=== PATIENT | male | born 1935 | race Caucasian/White ===

== ENCOUNTER 2016-09-12 07:13 | Observation (INO) ==
--- NOTE | 2016-09-12 07:31 | Anesthesia Evaluation PreOp ---
Date of Encounter: 09/12/16 Time of Encounter: 07:29 - Past History Planned Operation: TURP Cardiac History: HTN Pulmonary History: Denies Any Significant HX CIRCULATION MANAGER History: Denies Any Significant HX Other Medical History: Renal (stones), GERD Anesthesia History: No Prior Anesthetic Complications, Past Anesthesia (tonsils , appy, lumbar) Alcohol Use: none Drug use: none Medications and Allergies Albuterol Sulfate [Proair HFA] 2 puff IH Q4HR 2 Days 11/18/14 [Rx] Doxycycline 100 mg PO BID 7 Days 11/18/14 [Rx] Flomax 11/18/14 [History] predniSONE [Prednisone] 20 mg PO BID 3 Days 11/18/14 [Rx] Albuterol Sulfate [Albuterol Inhaler] 2 puff IH Q6HR PRN #1 hfa.aer.ad 03/24/15 [Rx] Doxycycline 100 mg PO BID #20 capsule 03/24/15 [Rx] PredniSONE [Prednisone] 10 mg PO DAILY #30 tablet 03/24/15 [Rx] Allergies Penicillins [PCN] Allergy (Verified 11/18/14 16:51) See Comments - Meds/Allergy Pre-op Review Medications Reviewed: Yes Allergies Reviewed: Yes Beta Blockers on Current Med List: No Anesthesia Results - Labs Laboratory Tests 09/01/16 09/01/16 10:14 10:14 Hgb 16.1 Hct 47.4 Plt Count 134 L Creatinine 1.25 Anesthesia Exam O2 Sat Height 1.8 m Height 1.8 m Weight 113.398 kg Weight 113.398 kg O2 Sat by Pulse Oximetry 96 Vital Signs Temp Pulse Resp BP Pulse Ox 97.6 F 58 18 160/80 96 09/12/16 07:29 09/12/16 07:29 09/12/16 07:29 09/12/16 07:29 09/12/16 07:29 Height: 1.8 Weight: 114 NPO (# of Hours): >8 - HEENT Pupil (Motor): Pupils equal, EOMI Mallampati: II Teeth: Poor dentition Oral Opening: Greater than 3 - CIRCULATION MANAGER LOC: Oriented CIRCULATION MANAGER Motor: Normal RUE, Normal LUE, Normal RLE, Normal LLE, Normal Face CIRCULATION MANAGER Sensory: Normal: RUE, LUE, RLE, LLE, Face - Cardiac Rhythm: Regular Murmur: None - Pulmonary Breath Sounds: bilateral Clear Respiratory Effort: Symmetrical Anesthesia Assess/Plan ASA Score: 3 Modified [place] Scale for Level of Consciousness: Cooperative, oriented, and tranquil Anesthetic Plan: General Monitoring Plan: Standard Monitors Recovery Plan: PACU
[2016-09-12] MEDS ORDERED: *HR* Propofol 200 MG/20 ML VIAL IVP ONE (08:10)
[2016-09-12] MEDS ORDERED: *HR* FentaNYL (PF) 100 MCG/2 ML VIAL ONE (08:10)
[2016-09-12] MEDS ORDERED: Levofloxacin 500 MG/100 ML 500 MG/100 ML BAG IVPB ONE (08:21)
[2016-09-12] MEDS ORDERED: Lidocaine -MPF 1% 2 ML VIAL ID ONE (08:21)
[2016-09-12] MEDS: Ringers Solution, Lactated 1,000 ML IVC SCH ×2 (08:37→11:31)
--- NOTE | 2016-09-12 08:53 | History & Physical Report ---
Date of Encounter: 09/12/16 Time of Encounter: 08:53 24 Hour HP Update - Instructions Instructions: If the History and Physical is less than 30 days old and was completed prior to A.M. admission and or procedure and has NOT been updated on calendar day of procedure please complete this update prior to performing procedure. - Update Patient reports changes in Medical Condition: No Changes in examination, assessment, or condition: No Changes in Medication: No Preop tests/diagnostics Reviewed: Yes Surgery Remains Indicated: Yes Consent for Planned Operative Procedure(s) Verified: Yes - Pre-Operative Checklist Preoperative Checklist Indicated: Yes Prophylactic Antibiotic Ordered: Yes Home Medications Include Beta Ari: No Is VTE Prophylaxis Indicated?: Yes
[2016-09-12] MEDS ORDERED: *HR* Labetalol 100 MG/20 ML MDV IVP PRN (09:20)
[2016-09-12] MEDS ORDERED: Ondansetron 4 MG/2 ML VIAL IVP ONE (09:20)
[2016-09-12] MEDS ORDERED: *HR* HYDROmorphone (PF) 1 MG/ML SYRINGE IVP PRN ×2 (09:20→10:32)
[2016-09-12] MEDS ORDERED: Ondansetron 4 MG/2 ML VIAL IVP PRN (10:32)
[2016-09-12] MEDS ORDERED: *HR* HYDROcodone/Acet 5/325 mg TABLET PO PRN (10:32)
[2016-09-12] MEDS ORDERED: Acetaminophen 325 MG TABLET PO PRN (10:32)
[2016-09-12] MEDS ORDERED: Naloxone 0.4 MG/ML INJ IVP PRN (10:32)
--- NOTE | 2016-09-12 10:32 | Operative Note ---
Date of procedure: 09/12/16 Pre-op diagnosis: BPH, incomplete emptying Post-op diagnosis: same Procedure: Transurethral resection of the prostate. Implants: [address] [place]. Complications: none. Anesthesia: MIRIAM Surgeon: Johnson Interiano Estimated blood loss (cc): 150 Specimen: prostate chips Condition: stable Disposition: PACU Procedure in Detail: INDICATIONS: Adam is an 81 year old gentleman, who has BPH and is incomplete bladder emptying. He has continued urinary symptoms despite being on medications. He wished to undergo a transurethral resection of prostate. He is aware of the risks of procedure including, but not limited to, bleeding, infection, injury to other structures, need for further procedures, incomplete bladder emptying, bladder neck contracture, urethral stricture, urinary incontinence, retrograde ejaculation, erectile dysfunction, and the risk of anesthesia. He is willing to proceed. DESCRIPTION OF PROCEDURE: After informed consent was obtained, the patient was brought back to the operating room and placed in supine position. Time-out was performed. General anesthesia was then administered and a laryngeal mask airway was placed. He was then placed in lithotomy position. His genitalia were prepped and draped in usual sterile fashion. The urethra was gently dilated to 28 [place] using the [place] sounds. The resector sheath was then introduced using the visual obturator to the urethra. The prostate showed lateral lobe hyperplasia. There was some enlargement of the median lobe. The ureteral orifices were in the normal orthotopic position. There is no bladder tumor. There were 3+ trabeculations with diverticula noted. I then inserted the Maher element with the resecting loop. The median lobe was taken down using electrocautery down to the level of the verumontanum. I then turned my attention to the left lateral lobe and this was resected away. Attention was then turned to the right lobe and this was resected away. I did perform a small amount of resection anteriorly as well. Once adequate resection was achieved, I then achieved hemostasis with electrocautery. All the TURP chips were irrigated out. I then confirmed hemostasis again. I reviewed all the diverticula to make sure there was no remaining TURP chip present. All the TURP chips seemed to be irrigated out. Once hemostasis was adequate, I removed the scope. The verumontanum and ureteral orifices were free of injury and left intact. A 24-Nauruan three-way catheter was then placed, 60 mL was instilled in the balloon. The catheter was left on mild traction. Slow continuous bladder irrigation was started. The patient was then awakened from general anesthesia, brought to recovery room in good condition. All sponge, needle, and instrument counts were correct.
--- NOTE | 2016-09-12 11:49 | Anesthesia Evaluation Post Op ---
Date of Encounter: 09/12/16 Time of Encounter: 11:45 - Vital Signs Vital Signs: Vital Signs/O2 Sat/Glucose, Most Current Temp Pulse Resp BP Pulse Ox 09/12/16 11:37 97 09/12/16 11:20 97.5 F L 59 14 146/81 96 09/12/16 11:06 98 F 53 16 156/81 97 09/12/16 10:56 98 F 53 16 143/81 94 09/12/16 10:46 53 16 146/81 92 09/12/16 10:36 59 16 147/84 94 09/12/16 10:26 99 F 64 16 156/89 97 09/12/16 08:32 97.6 F 58 18 160/80 96 - Lungs Lungs: Clear Ascult./Percussion - Airway Airway: Non-obstructed - Cardiovascular Regular Rate - Mental Status Mental Status: Alert & Oriented, Answers Appropriately - Pain Pain Scale: 0 - Nausea Vomiting Nausea Vomiting: Not Present - Hydration Hydration: NPO - Discharge PostOp Status: Transfer Patient to floor
[2016-09-12] MEDS: 0.9 % Sodium Chloride 1,000 ML IVC SCH ×2 (12:29→20:35)
[2016-09-13] MEDS: 0.9 % Sodium Chloride 1,000 ML IVC SCH ×3 (04:41→21:59)
--- NOTE | 2016-09-13 07:09 | Urology Progress Note ---
Date of Encounter: 09/13/16 Time of Encounter: 07:07 - Assessment and Plan (1) BPH NOS w ur obs/LUTS Current Visit: Yes Status: Acute Assessment and plan: s/p TURP. POD #1. 1. Will see how urine color does today. If it becomes more clear, we may consider d/c home this afternoon with catheter or keep him overnight to do a voiding trial tomorow. 2. Ambulate 3x/day. 3. Continue general diet. 4. MD will reassess this afternoon. 5. ESAU/SCDs for prophylaxis. Progress Note Narrative: Doing fairly well today. Urine is bloody off CBI, fontanez red. It irrigates clear, however. Pain is well controlled. Traction removed this morning. Objective Initial Vital Signs Temp Pulse Resp BP Pulse Ox 97.6 F 58 18 160/80 96 09/12/16 07:29 09/12/16 07:29 09/12/16 07:29 09/12/16 07:29 09/12/16 07:29 - General physical appearance Present: well developed, well nourished, no distress - Respiratory Present: normal respiratory effort - Abdomen Present: soft - Genitourinary Present: normal penis with no external lesions Urine Appearance: Present: Hematuria (Fontanez red off CBI.) - VTE Documentation of Mechanical Device: Intermittent pneumatic compression device Consult Discharge Plan - Plan Referrals: Karen Koch, [employer] [Primary Care Provider] -
[2016-09-13] MEDS: Ringers Solution, Lactated 1,000 ML IVC SCH ×2 (07:50)
[2016-09-13] MEDS ORDERED: Levofloxacin 500 MG/100 ML 500 MG/100 ML BAG IVPB SCH (11:00)
[2016-09-14] MEDS: 0.9 % Sodium Chloride 1,000 ML IVC SCH ×2 (06:38→14:42)
--- NOTE | 2016-09-14 06:57 | Discharge Summary ---
Date of Encounter: 09/14/16 Time of Encounter: 06:55 - Discharge Diagnosis (1) BPH NOS w ur obs/LUTS Priority: Primary Status: Acute - Discharge Medications Prescriptions: HYDROcodone/Acet 5/325 mg [[place] 5-325 mg] 2 tab PO Q4HR PRN #15 tablet PRN Reason: Mild Pain Docusate [Colace] 100 mg PO BID #60 capsule Home Medications: B2/Vits A,C,E/Lut/Zeaxanth/Min [Icaps Tablet] 1 each PO DAILY 09/12/16 [History] Docusate Sodium [Colace] 100 mg PO DAILY 09/12/16 [History] Garcinia Cambogia 500 mg DAILY 09/12/16 [History] Gluc HCl/Csa/Collagen/Hyalur A [Glucosamine Chondroitin Cap] 1 each PO DAILY 08/24 [History] Multivits,Ca,Min/Iron/FA/Lycop [Centrum Men's Tablet] 1 each PO DAILY 09/12/16 [ History] Omeprazole [PriLOSEC] 40 mg PO DAILY 09/12/16 [History] Primidone [Mysoline] 50 mg PO HS 09/12/16 [History] Red Yeast Rice 600 mg DAILY 09/12/16 [History] Tamsulosin [Flomax] 0.8 mg PO DAILY 09/12/16 [History] Vitamin E Acid Succinate [Vitamin E] 400 units PO DAILY 09/12/16 [History] Methylsulfonylmethane [MSM] 1,500 mg PO DAILY 09/13/16 [History] Docusate [Colace] 100 mg PO BID #60 capsule 09/14/16 [Rx] HYDROcodone/Acet 5/325 mg [[place] 5-325 mg] 2 tab PO Q4HR PRN #15 tablet [Rx] Allergies/Adverse Reactions: Allergies Penicillins [PCN] Allergy (Verified 11/18/14 16:51) See Comments Date of admission: 09/13/16 11:35 Primary care physician: Karen Koch CNP Discharging clinician: Johnson Interiano Anticipated date of discharge: 09/14/16 - Patient Status Disposition: Home, Self-Care Condition: Good Functional capacity at discharge: independent ambulation Overall status at discharge: patient is progressing back to baseline - Discharge Instructions Follow Up With: Johnson Interiano MD [Partnered Physician] - (2-4 weeks for post operative check.) Additional Instructions: No heavy lifting greater than 20 pounds 2 weeks. He may shower. Tub baths are okay. Return to the office or the emergency department for worsening bleeding. He should monitor for urine color. If it becomes more bloody he should return to the ER or the urology clinic. - Diet and Activity Activity: increase activity as tolerated Diet: advance to your usual diet - Hospital Course Hospital course: Mr. Mccallum is a 81 year old male with BPH. He underwent a TURP on 09/12/2016. On 09/14/2016 his urine was clear to light pink. His catheter was removed and he was able to urinate. His urine remained clear throughout the day. He was then discharged home later on postoperative day #2. - Time Spent with Patient Total time spent providing and/or coordinating discharge services: Less than 30 minutes Exam Initial Vital Signs Temp Pulse Resp BP Pulse Ox 97.6 F 58 18 160/80 96 09/12/16 07:29 09/12/16 07:29 09/12/16 07:29 09/12/16 07:29 09/12/16 07:29 - General physical appearance Present: well developed, well nourished, no distress - Eyes Absent: icteric - ENT Present: normal nares - Neck Present: trachea midline - Respiratory Present: normal respiratory effort - Cardiovascular Cardiovascular exam IM: RRR - Abdomen Abdomen: Present: soft - VTE Documentation of Mechanical Device: Graduated compression elastic hosiery
[2016-09-14] MEDS: Ringers Solution, Lactated 1,000 ML IVC SCH ×2 (09:39)
[2016-09-14 15:35] VITALS: BP 146/79
== END 2016-09-14 17:34 | disposition home or self-care (01) ==
LOC: SAMDAY 07:13 → 3BNU 07:13
PROVIDERS: ADMIT Urology; ATTEND Urology
PROC: UROTURP (2016-09-12 09:10)